=== PATIENT | female | born 1995 | race African-American/Black ===

== ENCOUNTER 2016-09-08 12:58 | Inpatient (IN) | payer OTHER ==
[2016-09-08] VITALS (7 sets, daily range): BP systolic 111–119; BP diastolic 72–81; PULSE 58–71; TEMP 36.5–36.7; O2SAT 95–100; Ht 170.2 cm; Wt 67.2 kg
[~2016-09-08] VITALS: Ht 170.2 cm; Wt 67.2 kg
[2016-09-08] MEDS ORDERED: SODIUM CHLORIDE 0.9% 1000ML 1,000 ML IV STA (13:06)
[2016-09-08] MEDS ORDERED: CEFAZOLIN SOD 1000MG/55 ML D5W IV STA (13:06)
[2016-09-08] MEDS ORDERED: HYDROmorphone INJ 1 MG/ML SYR IV STA (13:24)
--- NOTE | 2016-09-08 13:39 | DIAGNOSTIC IMAGING REPORT ---
RIGHT TIBIA/FIBULA 2 VIEWS ROUTINE CLINICAL HISTORY: right ankle fracture/open Right trauma. Pain. COMPARISON: None. DISCUSSION: No well-defined acute abnormality specifically tibia or fibula. Probable disruption right ankle. Moderate localized soft tissue edema. IMPRESSION: Disruption right ankle. No acute abnormality specifically of the tibia or fibula. Electronically signed by: Zane Ibarra M.D. 09/08/2016 1:38 PM Dictated Date/Time: 09/08/2016 1:37 PM
--- NOTE | 2016-09-08 13:41 | DIAGNOSTIC IMAGING REPORT ---
RIGHT ANKLE MIN 3 VIEWS ROUTINE CLINICAL HISTORY: right ankle fracture/open Right trauma COMPARISON: None. DISCUSSION: 203 images demonstrate disruption of the ankle mortise. A well-defined fracture is not seen. There is soft tissue with associated air present. Lateral projection appears to share generally anatomic alignment. IMPRESSION: Probable rotational dislocation of the tibia and relation to the talus. Considerable soft tissue edema with subcutaneous air Electronically signed by: Zane Ibarra M.D. 09/08/2016 1:40 PM Dictated Date/Time: 09/08/2016 1:38 PM
[2016-09-08] MEDS ORDERED: HYDROmorphone INJ 1 MG/ML SYR IV PRN (14:00)
--- NOTE | 2016-09-08 14:02 | History and Physical ---
History & Physical Date & Time of Service: Sep 08, 2016 at 13:51 Chief Complaint: Fall /Rt Ankle Open Fx Primary Care Physician: [facility] History of Present Illness Source: patient Patient is a 21 year old female, with no medical problems. 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 She was at track practice this afternoon and was doing the triple jump. She states that, while jumping, she landed on her foot wrong and her foot twisted in. She had immediate pain and an open injury to her right ankle. She was unable to walk after the injury. She was brought directly to the ED for evaluation. X-rays were taken, she was found to have a probable ankle dislocation, no fractures were identified. She had an open injury over her distal fibula. She denies other injuries. States that she has pain with movement. She has never had any previous injuries to her right ankle. 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 Allergies Coded Allergies: No Known Allergies (Unverified , 09/08/16) Home Medications No Active Prescriptions or Reported Meds Review of Systems Constitutional: No fever, No chills, No sweats, No weight loss Eyes: No eye pain, No redness ENT: No hearing loss, No sore throat Respiratory: No cough, No sputum, No wheezing, No shortness of breath Cardiovascular: No chest pain, No edema, No palpitations Abdomen: No nausea, No vomiting, No diarrhea, No constipation Musculoskeletal: + joint pain (right ankle), + problem reported Genitourinary - Female: No dysuria Endocrine: No fatigue Hematologic / Lymphatic: No abnormal bleeding/bruising, No clotting problems Integumentary: No rash, No itch Physical Exam Vital Signs Date Time Temp Pulse Resp B/P (MAP) Pulse Ox O2 Delivery O2 Flow Rate FiO2 09/08/16 13:07 37.5 76 18 138/73 98 Room Air General Appearance: WD/WN, no apparent distress Head: normocephalic, atraumatic Eyes: normal inspection, PERRL, EOMI, sclerae normal ENT: normal ENT inspection, hearing grossly normal, pharynx normal Neck: supple, trachea midline Respiratory/Chest: chest non-tender, lungs clear, normal breath sounds, no accessory muscle use Cardiovascular: regular rate, rhythm, no edema, no murmur, normal peripheral pulses Abdomen/GI: normal bowel sounds, non tender, soft Extremities/Musculoskelatal: + pertinent finding (right ankle edema, open wound right ankle, distal pulses 1+; limited ROM right ankle due to pain/open wound. Fatty tissue visualized in wound. Wound is approximately 3 cm. Nontender right calf, nontender right knee, no knee effusion. Mild tenderness with palpation medial right ankle.) Neurologic/Psych: alert, normal mood/affect, oriented x 3 Skin: normal color, warm/dry, no rash Diagnostics Diagnostic Radiology RIGHT ANKLE MIN 3 VIEWS ROUTINE CLINICAL HISTORY: right ankle fracture/open Right trauma COMPARISON: None. DISCUSSION: 203 images demonstrate disruption of the ankle mortise. A well-defined fracture is not seen. There is soft tissue with associated air present. Lateral projection appears to share generally anatomic alignment. IMPRESSION: Probable rotational dislocation of the tibia and relation to the talus. Considerable soft tissue edema with subcutaneous air RIGHT TIBIA/FIBULA 2 VIEWS ROUTINE CLINICAL HISTORY: right ankle fracture/open Right trauma. Pain. COMPARISON: None. DISCUSSION: No well-defined acute abnormality specifically tibia or fibula. Probable disruption right ankle. Moderate localized soft tissue edema. IMPRESSION: Disruption right ankle. No acute abnormality specifically of the tibia or fibula. Impression Assessment and Plan Assessment: Open dislocation of right ankle. Plan: Recommend for Irrigation, debridement, splint, exploration right ankle today. She may or may not need internal fixation. RIsks/complications discussed, and include but are not limited to infection, bleeding, pain, scarring, nerve and blood vessel damage, wound problems, weakness, stiffness, arthritis, blood clots, embolisms, heart attack, stroke or . Informed consent obtained. We will take her to the OR today. She needs to be NPO. She will be admitted post operatively for IV antibiotics. She may require further surgery for wound management. She understands and agrees, all questions answered.
--- NOTE | 2016-09-08 14:15 | DIAGNOSTIC IMAGING REPORT ---
RIGHT ANKLE 2 VIEWS CLINICAL HISTORY: pain Right dislocation COMPARISON: None. DISCUSSION: Anatomic alignment status post closed reduction. The study is restricted AP projections. IMPRESSION: Anatomic alignment on the AP projection post closed reduction Electronically signed by: Zane Ibarra M.D. 09/08/2016 2:13 PM Dictated Date/Time: 09/08/2016 2:12 PM
[2016-09-08] MEDS ORDERED: PROPOFOL IV EMULSION 10 MG/ML 20 ML VIAL IV ONE (14:32)
[2016-09-08] MEDS ORDERED: LIDOCAINE HCL 2% 2 ML VIAL (20MG/ML) ONE (14:32)
[2016-09-08] MEDS ORDERED: MIDAZOLAM HCL 1 MG/ML 2ML VIAL ONE (14:32)
[2016-09-08] MEDS ORDERED: ONDANSETRON INJ 2 MG/ML 2 ML VIAL ONE (14:32)
[2016-09-08] MEDS ORDERED: DEXAMETHASONE SOD INJ 4 MG/ML VIAL ONE (14:32)
[2016-09-08] MEDS ORDERED: FENTANYL CITRATE INJ 50 MCG/1 ML 2 ML VIAL ONE (14:33)
[2016-09-08] MEDS ORDERED: POVIDONE-IODINE OP SOLN 30 ML BTL ONE ×2 (15:00→15:50)
[2016-09-08] MEDS ORDERED: LIDOCAINE/EPINEPHRINE 1% 20 ML VIAL ONE (15:00)
[2016-09-08] MEDS ORDERED: BUPIVACAINE 0.5 % 5 MG/1 ML MPF 30ML VIAL ONE (15:03)
--- NOTE | 2016-09-08 15:15 | ORTHOPEDIC CONSULTATION ---
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 She landed her foot inverted and she sustained an open injury to her right ankle. This happened about 30 minutes ago. She last ate breakfast, had some water at practice this afternoon. She has not had a prior history of ankle injury. She complains of pain only in the right ankle area. PAST MEDICAL HISTORY: Negative. PAST SURGICAL HISTORY: Negative. MEDICATIONS: None. ALLERGIES: Seasonal, none to medications. SOCIAL HISTORY: She is 21 years old, goes to [employer]. 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 PHYSICAL EXAMINATION: Further details can be gathered from Sena Navarro's history and physical. In terms of the right ankle, her Achilles and tibialis anterior appear to be intact. She can flex and extend her toes. Inversion of the ankle is painful and might be associated with subluxation of the tibialis posterior tendon. She holds her leg plantarflexed and inverted. She can dorsiflex short of neutral, plantar flex slightly. She has normal sensation throughout the foot. She has 1+ posterior tibial and dorsalis pedis pulses. The foot and hindfoot are nontender. She has tenderness of the medial and lateral malleoli. Swelling is minimal. She has no tenderness of her leg or knee. There is an open wound on the lateral side of the ankle which is probably 3-4 cm and is somewhat irregular, possibly oblique. The fibula is buttonholed out through this with skin underneath the medial portion of the distal fibula. There is some sand present. There was an ant crawling on her leg. The sand was cleaned away, insect which was nowhere near the wound on her lower leg area was removed. DIAGNOSTIC IMAGING: Radiographs show that there is abnormal alignment of the talus within the distal tibia. There appears to be air within the subcutaneous tissues, possibly within the joint. There is foreign material noted around the skin and possibly subcutaneous tissues. I do not see any obvious fracture. The oblique view suggests that there could be a nondisplaced posterior malleolar fracture. There does not appear to be a syndesmotic disruption or any evidence of medial or lateral malleoli fracture. IMPRESSION: Severe right ankle sprain with open wound and probable open ankle joint, possible injury to the medial retinaculum. 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 She is educated about what is going on. I think she sustained a severe inversion injury which resulted in tearing of all the ligaments around the distal fibula, tear in the skin and buttonholing of the fibula through the skin. She likely has an open ankle joint in addition to significant ligament damage on the lateral side of her ankle. There are other injuries which may still be present and unrecognized. I recommend that we operate on her ankle initially to irrigate, explore and debrided. I do not think that we will be doing any repairing at this point. I would then suggest possibly returning to the operating room for further repair of the ligaments as indicated. Given that she has sand in and around the wound, I think that this is a potentially contaminated wound. I am not certain what kind of debris may be within the ankle joint. There may be damage to the tibialis posterior tendon sheath causing the tendon to subluxate. If that is the case a repair may be considered there as this is away from the open wound area. The risks of infection, bleeding, pain, scarring, nerve and blood vessel damage, blood clots, embolism, heart attack, stroke and . She may need further surgery, stiffness, ankle arthritis and ankle looseness could be a risk. She does not have any issues with bleeding, blood clots or infections. We will plan on proceeding to the operating room. Her tetanus is up to date. She has received 2 grams of Ancef. She will be placed in a Betadine dressing with a posterior splint and U-stirrup and will go promptly to the OR for exploration.
[2016-09-08] MEDS ORDERED: MoRPHine SULFATE 10 MG/ML CARP/VIAL IV PRN (15:30)
[2016-09-08] MEDS ORDERED: ONDANSETRON INJ 2 MG/ML 2 ML VIAL IV PRN (15:30)
[2016-09-08] MEDS ORDERED: NALOXONE HCL 0.4 MG/1 ML VIAL/CARP IV PRN (15:30)
[2016-09-08] MEDS ORDERED: ATROPINE SULFATE 0.1 MG/ML 5ML SYR IV PRN (15:30)
[2016-09-08] MEDS ORDERED: PHENYLEPHRINE 100MCG/ML 5ML SYR IV PRN (15:30)
[2016-09-08] MEDS ORDERED: FLUMAZENIL 0.1 MG/1 ML 10 ML VIAL IV PRN (15:30)
[2016-09-08] MEDS ORDERED: LABETALOL HCL IV 5 MG/ML 20ML IV PRN (15:30)
[2016-09-08] MEDS ORDERED: EpHEDrine SULFATE INJ 50 MG/ML AMP IV PRN (15:30)
[2016-09-08] MEDS ORDERED: MEPERIDINE HCL 25 MG/ML CARP IV PRN (15:30)
[2016-09-08] MEDS ORDERED: ROCURONIUM BROMIDE 10 MG/ML 5 ML VIAL ONE (15:34)
[2016-09-08] MEDS ORDERED: SUCCINYLCHOLINE CHLORIDE 20 MG/ML 10 ML VIAL IV ONE (15:34)
[2016-09-08] MEDS ORDERED: ACETAMINOPHEN 325 MG TAB PO PRN (16:45)
--- NOTE | 2016-09-08 16:47 | [facility] Post Operative Brief Note ---
Immediate Operative Summary Operative Date Sep 08, 2016. Pre-Operative Diagnosis complete lateral ligament disruption with open ankle joint Post-Operative Diagnosis complete lateral ligament disruption with open ankle joint Procedure(s) Performed Irrigate, Explore, Repair of Right Ankle Wound Surgeon Dr. Navdeep Perez Assistant Professor Of Theater Surgeon(s) Sena Navarro PA-C Estimated Blood Loss 10ml Findings complete lateral ligament disruption with open ankle joint Specimens none per surgeon Dr. Navdeep Perez Drains 1 Anesthesia LMA Complication(s) None Disposition Recovery Room / PACU
--- NOTE | 2016-09-08 16:48 | [facility] Operative Report ---
Operative Report Operative Date Sep 08, 2016. Pre-Operative Diagnosis complete lateral ligament disruption with open ankle joint Post-Operative Diagnosis Same as pre-op Procedure(s) Performed Irrigation, debridement, exploration right open ankle wound Surgeon Dr. Navdeep Perez Plans Examiner Surgeon(s) Sena Navarro PA-C Estimated Blood Loss 10ml Findings right open ankle wound Specimens none per surgeon Dr. 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 She injured her right ankle today while doing the triple jump. She landed on her foot while inverted and sustained right open ankle injury. She had immediate pain, was taken to ED for evaluation. Surgical intervention was recommended for irrigation, debridement and exploration of her right ankle wound. She agreed, risks/complications of surgery discussed, informed consent obtained. Description of Procedure Patient was taken to the operating room, given IV Ancef, which was started in the ED. Time out performed, prepped and draped in routine sterile fashion. She was awakened and taken to the recovery room in stable condition. I was present the entire case, please see Dr. Perez's operative report for further detail. I attest to the content of the Intraoperative Record and any orders documented therein. Any exceptions are noted below.
[2016-09-08] MEDS: HYDROmorphone INJ 1 MG/ML SYR IV PRN ×4 (17:05→17:20)
--- NOTE | 2016-09-08 17:44 | Anesthesiology Progress Note ---
Anesthesia Post Op Note Date & Time Sep 08, 2016 at 17:43 Vital Signs Pain Intensity: 3 Vital Signs Past 12 Hours Date Time Temp Pulse Resp B/P (MAP) Pulse Ox O2 Delivery O2 Flow Rate FiO2 09/08/16 17:30 36.7 64 16 130/74 100 Nasal Cannula 2 09/08/16 17:20 64 16 118/75 100 Nasal Cannula 2 09/08/16 17:10 81 16 128/79 100 Room Air 09/08/16 17:00 75 16 126/72 100 Mask 10 09/08/16 16:50 90 16 128/73 100 Mask 10 09/08/16 16:44 36.6 85 16 127/79 99 Mask 10 09/08/16 14:15 95 Room Air 09/08/16 14:10 83 16 129/74 95 Room Air 09/08/16 13:07 37.5 76 18 138/73 98 Room Air Notes Mental Status: alert / awake / arousable, participated in evaluation Pt Amnestic to Procedure: Yes Nausea / Vomiting: adequately controlled Pain: adequately controlled Airway Patency, RR, SpO2: stable & adequate BP & HR: stable & adequate Hydration State: stable & adequate Anesthetic Complications: no major complications apparent
--- NOTE | 2016-09-08 18:00 | OPERATIVE REPORT ---
DATE OF OPERATION: 09/08/2016 PREOPERATIVE DIAGNOSIS: Open right ankle wound. POSTOPERATIVE DIAGNOSES: Complete disruption of the lateral ankle ligamentous complex of the right ankle with open ankle joint and disruption of the anterior and posterior joint capsule, and probable traumatic disruption of the medial flexor retinaculum of the right ankle as well. PROCEDURES: Examination under anesthesia, exploration, irrigation and debridement of the right ankle. SURGEON: Dr. Navdeep Perez. LUMBER RACKER: Sena Navarro. No resident or fellow available. ANESTHESIA: Laryngeal mask. INDICATIONS FOR THE PROCEDURE: The patient is a 21-year-old female who sustained the aforementioned injury after she was landing a triple jump at [facility]. 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 When evaluated in the Emergency Room, radiographs showed that she had no visible fracture. She did have some tenderness and some irregularity medially, which I believe later determined was due to disruption of the medial retinaculum. She also had the distal 3-4 cm of her fibula protruding from a transverse wound at the distal extent of the right lateral ankle. I have recommended that she have an irrigation and debridement, exploration done and she agreed to proceed. I believe that she likely has an open ankle joint with possible contamination. PROCEDURE IN DETAIL: Informed consent was obtained. The patient identified as Janet Cabrera. She identified the operative site as the right ankle. I marked it with my initials. A preop surgical timeout was performed. A preop dose of IV antibiotics was given. She was positioned supine on the OR table with tourniquet on the right leg. The leg was precleansed by scrubbing with chlorhexidine and irrigating with sterile saline to wash gross debris off her leg, mostly which was sand. The open wound was scrubbed in a likewise fashion. I inverted the ankle to see if there is any gross contamination between the medial fibula and the skin, which there was not. Prior to this, a surgical timeout was performed and she received a preop dose of IV antibiotics. The examination during surgery revealed that she had a grossly positive ankle drawer. When her ankle was reduced and in the neutral position, she did not have significant [id number]-[id number] laxity. She had significant laxity to inversion stress. At the conclusion of the operation, approximately 15 mL of 1% lidocaine with epinephrine and 0.5% Marcaine plain were injected into the skin and subcutaneous tissues only. DVT prophylaxis will be done with early patient mobility. The leg was prescrubbed as mentioned and then prepped with Betadine and draped in usual sterile fashion. The limb was exsanguinated with gravity and tourniquet inflated to 225 mmHg. It was let down at the conclusion of the operation after 50 minutes of inflation. There was no significant bleeding noted before or after surgery. I initially reduced the skin from underneath the fibula back to its normal location to the lateral side of the fibula. Essentially, the tip of the fibula had buttonholed through the skin. This laceration turned out to be L shaped with the apex of the L posterior and distal. The transverse component was distal and this was about 3 cm from the tip of the fibula. The longitudinal limb extended proximally along the posterior aspect of the fibula. I elected to go ahead and divide the distal flap in half rather than make a large flap with undermining. This will also allow access to the front and back of the fibula without significant undermining. I made the incision about 3 cm in length down to the level of the fibular periosteum. The calcaneofibular and anterior talofibular ligaments were completely avulsed off of the talus and were attached to the fibula. They were extracted from the joint. The joint was readily opened as the anterior capsule was completely disrupted. A colby of cartilage mm thick and 0.9 x 0.9 x 0.9 cm in size, very fragmented irregular was noted. I could not determine where this came from as I could see the most of the talus/tibial plafond except for medially. I could not see the medial aspect of the distal fibula. The talus and tibia that I visualized did not have any cartilage defects. There fortunately was not gross contamination present. I did not note any sand or dirt within the ankle joint proper. This was irrigated with 3 liters of saline pulse lavage. I irrigated with 1 liter of Betadine lavage solution followed by another 3 liters of sterile saline. Irrigation was performed in the front of the ankle joint. With the ankle in mid position and anterior drawer, the posterior capsule could be seen and visualized to be also completely torn. Irrigation was performed of the back of the ankle joint as well. With the ankle slightly everted and a neutral position without any anterior pressure on the calcaneus, the ankle was reduced. I also noted that I could subluxate the tibialis posterior tendon up over the medial malleolus. She likely had a flexure retinacular tear as well. A drain was inserted that exiting out laterally. The surgical incision was closed with horizontal mattress stitches. The traumatic laceration was closed using a combination of [id number] stitches and simple stitches, reapproximating the skin edges, covering the bone completely and leaving gaps in between for drainage. Xeroform, 4 x 4's, ABD, and cast padding were applied. A posterior splint with U-stirrup was applied with the ankle in neutral position, slight eversion. When applying the splint, no anterior pressure was applied to the heel and no anterior direct force was applied to the foot so as to avoid any subsequent subluxation. She was awakened from anesthesia without difficulty and taken to recovery room in stable condition. There were no specimens or complications. Counts were correct at the end of case. Blood loss was approximately 10 mL. At the conclusion of the operation, I spoke to patient's friend and informed them of my findings. Postoperative instructions were given. Postoperative plan will be drainage for 24-48 hours. After the drain has pulled, we will obtain an MRI for further evaluation. She will receive a course of postop intravenous antibiotics, first generation cephalosporin for approximately 48 hours. She will have nonweightbearing on the leg using crutches. Consideration will be made to referral to the foot and ankle specialist at [place] given the significant nature of her ankle injury as well as her lead level of athletic participation. The patient likely will require ankle ligament reconstruction or repair as well as medial retinacular repair. At this time, given the open nature of her ankle injury, I think it is prudent to ensure that the soft tissue envelope is competent and that no infection develops prior to any type of reconstructive procedure for now. I attest to the content of the Intraoperative Record and any orders documented therein. Any exceptions are noted below. ERICK
--- NOTE | 2016-09-08 19:28 | EMERGENCY ROOM VISIT NOTE ---
History Report prepared by Tomas: Bailey Yanez Under the Supervision of: Dr. Garrett Vaughn M.D. First contact with patient: 13:01 Stated Complaint: FALL /RT ANKLE OPEN FX History of Present Illness The patient is a 21 year old female who presents to the Emergency Room with complaints of an episode of a fall just prior to arrival. The patient reports that she was doing the triple jump into the sand pit and twisted her ankle. She states that she rated her pain originally as a 12/10 in severity and now currently rates it as a 7/10 in severity. The patient reports that it is very uncomfortable. She states that she has rolled her ankle in the past, but nothing like this before. She notes that she last ate grapes and crackers three hours ago and that she believes her tetanus is up to date. She notes that she does not take any control. Source of History: patient Onset: prior to arrival Position: other (global) Symptom Intensity: 7/10 Quality: other (uncomfortable) Timing: other (episode) Note: The patient complains of ankle pain. Review of Systems See HPI for pertinent positives & negatives. A total of 10 systems reviewed and were otherwise negative. Past Medical & Surgical Medical Problems: (1) No Known Active Medical Problems (2) Open wound of ankle Family History No pertinent family history Social History Smoking Status: Never Smoker Drug Use: none Marital Status: single Housing Status: lives with roommate Occupation Status: [employer] student Current/Historical Medications No Active Prescriptions or Reported Meds Allergies Coded Allergies: No Known Allergies (Unverified , 09/08/16) Physical Exam Vital Signs Date Time Temp Pulse Resp B/P (MAP) Pulse Ox O2 Delivery O2 Flow Rate FiO2 09/08/16 14:15 95 Room Air 09/08/16 14:10 83 16 129/74 95 Room Air 09/08/16 13:07 37.5 76 18 138/73 98 Room Air Physical Exam GENERAL: Patient is uncomfortable appearing and in moderate distress. HEENT: No acute trauma, normocephalic atraumatic, mucous membranes moist, no nasal congestion, no scleral icterus. NECK: No stridor, no adenopathy, no meningismus, trachea is midline. LUNGS: No dyspnea. Clear to auscultation and equal bilaterally. No wheeze, no rhonchi. HEART: Regular rate and rhythm. No murmurs, rubs, gallops appreciated. ABDOMEN: Soft, nontender, bowel sounds positive, no masses appreciated, no peritonitis. BACK: No midline tenderness, no CVA tenderness EXTREMITIES: Normal motion all extremities, no cyanosis, no edema. Mild medial angulation of right ankle with open fracture of lateral malleolus and bone exposed with 3 cm laceration. Pulses, sensation, and movement intact, ankle is unstable by examination, no tenderness to palpation over fibular head. NEUROLOGIC: Alert and oriented, no acute motor or sensory deficits, no focal weakness, cranial nerves grossly intact. SKIN: No rash, no jaundice, no diaphoresis. Medical Decision & Procedures ER Provider Diagnostic Interpretation: Radiology results and stated below per my review and radiologist interpretation: RIGHT TIBIA/FIBULA 2 VIEWS ROUTINE CLINICAL HISTORY: right ankle fracture/open Right trauma. Pain. COMPARISON: None. DISCUSSION: No well-defined acute abnormality specifically tibia or fibula. Probable disruption right ankle. Moderate localized soft tissue edema. IMPRESSION: Disruption right ankle. No acute abnormality specifically of the tibia or fibula. Electronically signed by: Zane Ibarra M.D. 09/08/2016 1:38 PM Dictated Date/Time: 09/08/2016 1:37 PM RIGHT ANKLE MIN 3 VIEWS ROUTINE CLINICAL HISTORY: right ankle fracture/open Right trauma COMPARISON: None. DISCUSSION: 203 images demonstrate disruption of the ankle mortise. A well-defined fracture is not seen. There is soft tissue with associated air present. Lateral projection appears to share generally anatomic alignment. IMPRESSION: Probable rotational dislocation of the tibia and relation to the talus. Considerable soft tissue edema with subcutaneous air Electronically signed by: Zane Ibarra M.D. 09/08/2016 1:40 PM Dictated Date/Time: 09/08/2016 1:38 PM Laboratory Results Test 09/08/16 14:48 Medications Administered Medications (Trade) Dose Ordered Sig/Connor Route Start Time Stop Time Status Last Admin Dose Admin Sodium Chloride 1,000 ml @ 125 mls/hr Q8H STAT IV 09/08/16 13:06 09/08/16 18:44 DC 09/08/16 13:27 125 MLS/HR Cefazolin Sodium (Ancef 1000mg/55 ml D5W) 2,000 mg NOW STAT IV 09/08/16 13:06 09/08/16 13:08 DC 09/08/16 13:28 2,000 MG Hydromorphone HCl (Dilaudid Inj) 1 mg NOW STAT IV 09/08/16 13:24 09/08/16 13:25 DC 09/08/16 13:37 1 MG Povidone Iodine (Betadine Ophthalmic Prep Solution) 30 ml STK-MED ONCE .ROUTE 09/08/16 15:00 09/08/16 15:01 DC 09/08/16 15:00 30 ML Lidocaine/ Epinephrine (Xylocaine/Epine 1% Inj) 20 ml STK-MED ONCE .ROUTE 09/08/16 15:00 09/08/16 15:01 DC 09/08/16 16:01 20 ML Bupivacaine HCl (Marcaine 0.5% MPF Inj) 30 ml STK-MED ONCE .ROUTE 09/08/16 15:03 09/08/16 15:04 DC 09/08/16 16:01 30 ML Hydromorphone HCl (Dilaudid Inj) 0.5 mg Q5M PRN IV 09/08/16 15:30 09/08/16 21:00 09/08/16 17:20 0.5 MG Povidone Iodine (Betadine Ophthalmic Prep Solution) 60 ml STK-MED ONCE .ROUTE 09/08/16 15:50 09/08/16 15:51 DC 09/08/16 16:01 60 ML ED Course 1302: The patient was evaluated in room A9. A complete history and physical exam was performed. 1306: Ordered Cefazolin Sodium 2000 mg IV, NSS 1000 ml @ 125 mls/hr IV. 1311: Discussed the patient's case with Dr. Perez. He will come evaluate the patient. 1323: I reevaluated the patient and she is currently in pain. She has requested more pain medication. 1324: Ordered Dilaudid Inj 1 mg IV. 1344: Dr. Perez has evaluated the ankle and feels that she needs to go to he OR. He asked that we place and Orthoglass splint. 1347: I reevaluated the patient and she notes that the pain is improving after the Dilaudid. 1400: Ordered Dilaudid Inj 1 mg PRN IV pain 1437: The patient will be transferred to the OR as soon as the OR is ready. Medical Decision Medication Reconciliation: I attest that I have personally reviewed the patient 's current medication list. Blood Pressure Screening: Patient was found to have a slightly elevated blood pressure due to circumstances. I do not believe that the patient requires hypertension monitoring. 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 She has clear open injury with fibula extending ~3 cm out of lateral aspect right ankle. Unstable ankle by exam. Grossly contaminated with sand. Tetanus UTD per patient. Given empiric Ancef with plan OR. Imaging remarkably without obvious fracture. [employer] orthopedics down to evaluate patient and then took her to OR for definitive treatment. Stable and pain controlled with IV dilaudid in ED. No other injuries and denies other complaints. Consults Time Called: 1307 Consulting Physician: Dr. Perez Returned Call: 1311 Discussed the patient's case with Dr. Perez. He will come evaluate the patient. Impression Primary Impression: Open dislocation of ankle Scribe Attestation The scribe's documentation has been prepared under my direction and personally reviewed by me in its entirety. I confirm that the note above accurately reflects all work, treatment, procedures, and medical decision making performed by me. Departure Information Dispostion Being Evaluated By Surgeon Prescriptions No Active Prescriptions or Reported Meds Referrals [facility] (PCP) Problem Qualifiers Primary Impression: Open dislocation of ankle Encounter type: initial encounter Laterality: right Qualified Codes: S93.04XA - Dislocation of right ankle joint, initial encounter; S91.001A - Unspecified open wound, right ankle, initial encounter
[2016-09-08] MEDS: D5W AND 1/2NSS + 20MEQ KCL 1,000 ML IV SCH (19:46)
[2016-09-08] MEDS: KETOROLAC TROMETHAMINE 30 MG/ML VIAL IV. SCH (19:46)
[2016-09-08] MEDS: DOCUSATE SODIUM 100 MG CAP PO SCH (21:00)
[2016-09-08] MEDS: ONDANSETRON INJ 2 MG/ML 2 ML VIAL IV PRN (21:36)
[2016-09-08] MEDS ORDERED: CEFAZOLIN SOD 1000MG/55 ML D5W IV SCH (22:00)
[2016-09-08] MEDS: CEFAZOLIN IV 1,000 MG in DEXTROSE 5% 50ML 50 ML IV SCH (22:19)
[2016-09-08] MEDS: OXYCODONE HCL IR 5 MG TAB (IMMEDIATE RELEASE) PO PRN (23:37)
[2016-09-09] VITALS (7 sets, daily range): BP systolic 98–114; BP diastolic 64–72; PULSE 52–77; TEMP 36.5–37.3; O2SAT 98–100
[2016-09-09] MEDS: MoRPHine SULFATE 2 MG/ML CARP IV PRN ×3 (00:43→06:06)
[2016-09-09] MEDS: KETOROLAC TROMETHAMINE 30 MG/ML VIAL IV. SCH ×3 (01:26→13:31)
[2016-09-09] MEDS: OXYCODONE HCL IR 5 MG TAB (IMMEDIATE RELEASE) PO PRN ×3 (03:53→22:13)
[2016-09-09] MEDS: ONDANSETRON INJ 2 MG/ML 2 ML VIAL IV PRN (06:02)
[2016-09-09] MEDS: CEFAZOLIN IV 1,000 MG in DEXTROSE 5% 50ML 50 ML IV SCH ×3 (06:05→21:38)
[2016-09-09] MEDS: D5W AND 1/2NSS + 20MEQ KCL 1,000 ML IV SCH ×2 (06:05→15:45)
--- NOTE | 2016-09-09 08:51 | Orthopedic Progress Note ---
Orthopedic Progress Note Date of Service Sep 09, 2016. Subjective Post OP Day: 1 Reports: feeling well, nausea / vomiting, pain controlled w PO medications, Denies: chest pain, SOB, light headedness Additional Notes: States no pain with rest, pain with movement, controlled now. She just recently vomited. Objective calves soft nontender, N/V intact, splint C/D/I, dressing C/D/I, A&O x3, toes mobile Hemovac removed today. Date Time Temp Pulse Resp B/P (MAP) Pulse Ox O2 Delivery O2 Flow Rate FiO2 09/09/16 08:05 100 Room Air 09/09/16 07:56 36.5 59 15 104/68 (80) 100 Room Air 09/09/16 04:00 36.6 57 16 110/70 (83) 100 Room Air 09/08/16 23:38 Nasal Cannula 2.0 09/08/16 23:25 36.5 60 14 111/74 (86) 100 Nasal Cannula 2.0 09/08/16 20:55 36.7 64 16 118/74 (89) 100 Nasal Cannula 2.0 09/08/16 19:57 36.5 71 16 119/72 (88) 100 Nasal Cannula 09/08/16 18:57 36.7 58 16 118/81 (93) 100 Nasal Cannula 2.0 09/08/16 18:32 36.6 60 14 116/73 (87) 100 Nasal Cannula 2.0 09/08/16 17:50 100 Nasal Cannula 2.0 09/08/16 17:50 100 Nasal Cannula 2.0 09/08/16 17:30 36.7 64 16 130/74 100 Nasal Cannula 2 09/08/16 17:20 64 16 118/75 100 Nasal Cannula 2 09/08/16 17:10 81 16 128/79 100 Room Air 09/08/16 17:00 75 16 126/72 100 Mask 10 09/08/16 16:50 90 16 128/73 100 Mask 10 09/08/16 16:44 36.6 85 16 127/79 99 Mask 10 09/08/16 14:15 95 Room Air 09/08/16 14:10 83 16 129/74 95 Room Air 09/08/16 13:07 37.5 76 18 138/73 98 Room Air Assessment & Plan Assessment: Open right ankle wound Plan: May be OOB with crutches, NWB RLE Ice/elevate as needed for pain/swelling Will add Reglan for N/V. Will order MRI of right ankle today to further evaluate soft tissue. Keep splint on at all times Continue IV Ancef for open wound into joint Plan for discharge to home possible . Will discuss findings with Dr. Perez. All questions answered. dp 2+ motor toes flex, ext 5/5, sens nml, plan MRI, ABX, discussed with patient Discharge Planning Discharge Planning: home Pain Management: Percocet
[2016-09-09] MEDS ORDERED: OXYC-57 PO (08:54)
--- NOTE | 2016-09-09 08:58 | Discharge Instructions ---
Discharge Instructions Date of Service Sep 09, 2016. Admission Reason for Admission: Open Wound Of Ankle Discharge Discharge Diagnosis / Problem: open right ankle wound Discharge Goals Goal(s): Decrease discomfort, Improve function, Increase independence Activity Recommendations Activity Limitations: per Instructions/Follow-up section Exercise/Sports Limitations: none (no sports) Driving or Machine Use: no driving Weightbearing Status: Left weightbearing (as tolerated), Right non- weightbearing . Instructions / Follow-Up Instructions / Follow-Up DIET: * Resume previous diet. MEDICATIONS: * Please take your prescriptions as instructed at your pre-op appointment and/ or see medication discharge instructions listed above. * If concerns develop, call your physician's office at . * Take stool softener (colace) while on pain medication * Take antibiotic (Keflex) four times/day x 5 days * Take zofran every 6 hours as needed for nausea/vomiting. SPECIAL CARE INSTRUCTIONS: * Ice to right ankle for 20-30 minutes at least 3 times/day * Elevate right ankle above heart to relieve pain/swelling. * Use crutches to assist with ambulation. * DO NOT PUT ANY WEIGHT ON RIGHT LEG * Keep dressing clean, dry, intact. Keep splint on at all times. * Okay to wiggle toes frequently and do full range of motion of right knee and right hip. * Your surgical extremity may be discolored due to prepping agents used on the skin. A bluish-green tint is a normal variant and should not cause alarm. Call your doctor at [phone] if: * Temperature above 101 degrees * Pain not relieved by pain medicine ordered * There is increased drainage or redness from any incision * You have any unanswered questions, problems or concerns. FOLLOW UP VISIT: * If not already scheduled, please call the office at to schedule a follow-up appointment. Please call Dr. Perez or Dr. Amezcua with any questions or concerns. * We will notify you of your appointment with a foot and ankle specialist in [facility] Hospital Diet Patient's current hospital diet: Regular Diet Discharge Diet Recommended Diet: Regular Diet Procedures Procedures Performed: Irrigate, Explore, Repair of Right Ankle Wound Pending Studies Studies pending at discharge: no Medical Emergencies . Who to Call and When: Medical Emergencies: If at any time you feel your situation is an emergency, please call 911 immediately. . Non-Emergent Contact Non-Emergency issues call your: Surgeon Call Non-Emergent contact if: temperature is above 101, your pain is not controlled, your pain is concerning you, wound has increased drainage, wound has increased redness, you have any medication questions . "Provider Documentation" section prepared by Sena Navarro. . VTE Core Measure Inpt VTE Proph given/why not?: Treatment not indicated [place] Drug Monitoring Program Search Results: patient reviewed within database, no issues identified
[2016-09-09] MEDS: MULTIVITAMIN TAB PO SCH (09:00)
[2016-09-09] MEDS ORDERED: METOCLOPRAMIDE HCL INJ 5 MG/ML 2 ML VIAL IV PRN (09:00)
[2016-09-09] MEDS: DOCUSATE SODIUM 100 MG CAP PO SCH ×2 (09:00→21:05)
--- NOTE | 2016-09-09 15:08 | DIAGNOSTIC IMAGING REPORT ---
RIGHT ANKLE MRI HISTORY: open right ankle wound into joint Right TECHNIQUE: Multiplanar multisequence MRI of the right ankle was performed without the use of intravenous contrast COMPARISON STUDY: Right ankle 09/08/2016. FINDINGS: Extensive subcutaneous edema seen throughout the right ankle. There are few small foci of subcutaneous gas along the lateral aspect of the ankle. There is also deep soft tissue edema surrounding the ankle. Mild marrow edema within the medial and lateral aspect of the distal tibia. However, no fracture or dislocation identified. These may represent small bone contusions. As also mild edema at the posterior talar dome. Mild marrow edema along the medial aspect of the talus. Interosseous ligament is likely intact. The Achilles tendon, flexor tendons, extensor tendons, and peroneal tendons are normal in course, caliber, and signal intensity. Full-thickness tear within the anterior talofibular and calcaneofibular ligaments. Mild edema within the posterior talofibular ligaments consistent with partial tear. There is also full-thickness tear at the deltoid ligament. IMPRESSION: 1. No acute fracture or dislocation within the right ankle. 2. Extensive soft tissue edema throughout the ankle with a small foci of subcutaneous gas along the lateral side of the ankle. 3. Small patchy areas of marrow edema within the distal tibia and talus suggestive of bone contusions. 4. Tears of the medial and lateral stabilizing ligaments as described above. Electronically signed by: Arron Castro M.D. 09/09/2016 3:07 PM Dictated Date/Time: 09/09/2016 2:56 PM
[2016-09-10] MEDS: D5W AND 1/2NSS + 20MEQ KCL 1,000 ML IV SCH ×2 (01:33→11:21)
[2016-09-10] MEDS: CEFAZOLIN IV 1,000 MG in DEXTROSE 5% 50ML 50 ML IV SCH ×2 (05:40→14:19)
[2016-09-10 06:05] VITALS: BP 128/76; PULSE 64; TEMP 37.8; O2SAT 100
[2016-09-10 06:07] VITALS: TEMP 37.5
[2016-09-10 07:45] VITALS: BP 110/62; PULSE 80; TEMP 37.4; O2SAT 100
[2016-09-10] MEDS: OXYCODONE HCL IR 5 MG TAB (IMMEDIATE RELEASE) PO PRN ×2 (08:27→14:08)
[2016-09-10] MEDS: DOCUSATE SODIUM 100 MG CAP PO SCH (08:30)
[2016-09-10] MEDS: MULTIVITAMIN TAB PO SCH (08:30)
[2016-09-10 08:46] VITALS: O2SAT 100
--- NOTE | 2016-09-10 08:53 | Progress Note ---
Orthopedic SOAP Note Subjective Date of Service: Sep 10, 2016. Post OP Day: 1 Reports: feeling well, pain controlled w PO medications, Denies: complaints, chest pain, SOB, nausea / vomiting, light headedness, calf pain, using [employer] Problem List Medical Problems: (1) Left otitis media Status: Acute (2) Open dislocation of ankle Status: Acute Objective calves soft nontender, N/V intact (good sensation great toe and toes 2-5, EHL intact, good strength with great toe flexion), capillary refill less than 2 sec. , dressing C/D/I, A&O x3, toes mobile Date Time Temp Pulse Resp B/P (MAP) Pulse Ox O2 Delivery O2 Flow Rate FiO2 09/10/16 07:45 37.4 80 15 110/62 (78) 100 Room Air 09/10/16 06:07 37.5 09/10/16 06:05 37.8 64 16 128/76 (93) 100 Room Air 09/09/16 23:45 Room Air 09/09/16 23:00 37.1 77 14 114/67 (83) 98 Room Air 09/09/16 15:35 Room Air 09/09/16 15:02 37.3 76 16 110/67 (81) 100 Room Air 09/09/16 12:07 36.8 52 12 98/64 (75) 99 Room Air 09/09/16 11:07 59 100 09/09/16 08:44 Room Air Assessment I&D and exploration of open right ankle wound Plan May be OOB with crutches, NWB RLE Ice/elevate as needed for pain/swelling Will add Reglan for N/V. MRI of right ankle yesterday to further evaluate soft tissue. Keep splint on at all times Continue IV Ancef for open wound into joint Plan for discharge to home possible . Will discuss findings with Dr. Perez. All questions answered. dp 2+ motor toes flex, ext 5/5, sens nml, plan MRI, ABX, discussed with patient
[2016-09-10] MEDS ORDERED: CEPH500C2 PO (14:34)
[2016-09-10] MEDS ORDERED: CLC100 PO (14:34)
[2016-09-10] MEDS ORDERED: ONDA4TAB10 SL (14:34)
[2016-09-10 14:56] VITALS: BP 110/62; PULSE 80; TEMP 37.4; O2SAT 100
--- NOTE | 2016-09-10 15:06 | PROGRESS NOTE ---
DATE: 09/10/2016 SUBJECTIVE: The patient is resting comfortably in bed. No problems were noted. Numerous questions are answered. She is afebrile. Her vital signs are stable. She has altered sensation, some numbness on the dorsum of the foot. The plantar aspect of the foot first webspace and medial side are okay, lateral border is more numb. Dorsalis pedis 1+ swelling, minimal. Her wound is inspected. There is no bleeding, swelling is minimal. There is no necrosis. No active drainage. She is redressed and splinted in neutral with an ankle stirrup. MRI is reviewed demonstrating significant soft tissue edema and soft tissue injury, complete lateral ligament injury and a medial deltoid injury as well. No fracture noted. Report reviewed. IMPRESSION: Severe right ankle sprain with injury to the deltoid calcaneofibular anterior and posterior talofibular ligaments and open joint, status post irrigation and debridement. PLAN: Findings are discussed. She will finish up her antibiotics and will be discharged home. Keep clean and dry. Keep the splint on, does not bear weight. Elevate, ice. Pain medication, antiinflammatory, medicine for nausea and a stool softener. We will place her on Keflex for 5 days. Followup will be arranged at [place] with foot and ankle service. This appointment is pending. If there are any problems with swelling, numbness, fever, severe pain, nausea, vomiting, dizziness, etc, please contact the office or go to the Emergency Room. We discussed there may be a need for further surgical intervention to treat the significant ligament injury that she has experienced.
[2016-09-10 15:21] VITALS: BP 111/71; PULSE 84; TEMP 37.1; O2SAT 98
--- NOTE | 2016-09-10 15:32 | Discharge Summary ---
Discharge Summary Date of Service Sep 10, 2016. Discharge Summary Admission Date: Sep 09, 2016 at 08:53 Discharge Date: Sep 10, 2016 Discharge Disposition: Home Principal Diagnosis: Right open ankle wound Procedures: Irrigation, debridement, exploration of right open ankle wound Pending Studies/Follow-Up: Follow up with Dr. Perez as instructed, our office will notify you with [place] Medication Reconciliation New Medications: Cephalexin Monohydrate (Keflex) 500 Mg Cap 500 MG PO QID, #20 CAP Ondasetron Odt (Zofran Odt) 4 Mg Tab 4 MG SL Q6H for Nausea, #20 TAB Oxycodone/Acetaminophen 5MG/325MG (Percocet 5MG/325MG) Tab 1-2 TABLETS PO Q4H PRN for Pain, #30 TAB Docusate Sodium (Docusate Sodium) 100 Mg Cap 100 MG PO BID for 30 Days, #60 CAP Admission Information HPI (per Admitting provider): Patient is a 21 year old female, with no medical problems. 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 She was at track practice this afternoon and was doing the triple jump. She states that, while jumping, she landed on her foot wrong and her foot twisted in. She had immediate pain and an open injury to her right ankle. She was unable to walk after the injury. She was brought directly to the ED for evaluation. X-rays were taken, she was found to have a probable ankle dislocation, no fractures were identified. She had an open injury over her distal fibula. She denies other injuries. States that she has pain with movement. She has never had any previous injuries to her right ankle. Physical Exam (per Admitting): General Appearance: WD/WN, no apparent distress Head: normocephalic, atraumatic Eyes: normal inspection, PERRL, EOMI, sclerae normal ENT: normal ENT inspection, hearing grossly normal, pharynx normal Neck: supple, trachea midline Respiratory/Chest: chest non-tender, lungs clear, normal breath sounds, no accessory muscle use Cardiovascular: regular rate, rhythm, no edema, no murmur, normal peripheral pulses Abdomen/GI: normal bowel sounds, non tender, soft Extremities/Musculoskelatal: + pertinent finding (right ankle edema, open wound right ankle, distal pulses 1+; limited ROM right ankle due to pain/open wound. Fatty tissue visualized in wound. Wound is approximately 3 cm. Nontender right calf, nontender right knee, no knee effusion. 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 She landed on her foot in inversion and had immediate pain. She sustained an open right ankle wound. She was seen and evaluated by Dr. Perez and surgical intervention was recommended for an irrigation, debridement, exploration of her right ankle wound. X-rays were taken in the ED and no fractures were identified. She was started on IV Ancef for infection prevention. On September 08, 2016 she underwent and urgent irrigation, debridement, exploration of her right ankle wound with Dr. Perez. This was done with general anesthesia. She tolerated the procedure well without any intra- operative complications. Post operatively she was allowed to be out of bed as tolerated, Non weight bearing right lower extremity with the assistance of crutches. She was instructed to ice and elevate for pain/swelling. She was given IV morphine and oral percocet for pain control. She did develop post operative nausea and vomiting and was given Zofran and Reglan to assist with those symptoms. Her IV Ancef 1 gm was continued q8hrs due to having an open wound to the ankle joint with exposed bone. She had a hemovac placed in her ankle which was removed on POD 1 without difficulty. An MRI was ordered and completed on September 09, 2016 and showed significant lateral ligamentous damage and deltoid ligament tear medially. She did well out of bed, was safe on crutches. On post operative day 2 her dressings were changed, incision was clean, dry, intact. New dressings were applied. She did report some decreased sensation on the dorsum and lateral aspect of her right foot. Due to the MRI findings and her complex soft tissue injury, it was decided that she would be referred to a ankle specialist in [place], [place]. Her appointment with that physician is currently pending. All findings were discussed with the patient, all questions were answered, she understands and agrees with the plan. Discharge instructions were provided. She was discharged to her home in stable condition on September 10, 2016. Total time spent on discharge = This includes examination of the patient, discharge planning, medication reconciliation, and communication with other providers. Discharge Instructions Discharge Instructions Date of Service Sep 09, 2016. Admission Reason for Admission: Open Wound Of Ankle Discharge Discharge Diagnosis / Problem: open right ankle wound Discharge Goals Goal(s): Decrease discomfort, Improve function, Increase independence Activity Recommendations Activity Limitations: per Instructions/Follow-up section Exercise/Sports Limitations: none (no sports) Driving or Machine Use: no driving Weightbearing Status: Left weightbearing (as tolerated), Right non- weightbearing . Instructions / Follow-Up Instructions / Follow-Up DIET: * Resume previous diet. MEDICATIONS: * Please take your prescriptions as instructed at your pre-op appointment and/ or see medication discharge instructions listed above. * If concerns develop, call your physician's office at . * Take stool softener (colace) while on pain medication * Take antibiotic (Keflex) four times/day x 5 days * Take zofran every 6 hours as needed for nausea/vomiting. SPECIAL CARE INSTRUCTIONS: * Ice to right ankle for 20-30 minutes at least 3 times/day * Elevate right ankle above heart to relieve pain/swelling. * Use crutches to assist with ambulation. * DO NOT PUT ANY WEIGHT ON RIGHT LEG * Keep dressing clean, dry, intact. Keep splint on at all times. * Okay to wiggle toes frequently and do full range of motion of right knee and right hip. * Your surgical extremity may be discolored due to prepping agents used on the skin. A bluish-green tint is a normal variant and should not cause alarm. Call your doctor at [phone] if: * Temperature above 101 degrees * Pain not relieved by pain medicine ordered * There is increased drainage or redness from any incision * You have any unanswered questions, problems or concerns. FOLLOW UP VISIT: * If not already scheduled, please call the office at to schedule a follow-up appointment. Please call Dr. Perez or Dr. Amezcua with any questions or concerns. * We will notify you of your appointment with a foot and ankle specialist in [place], [place] Current Hospital Diet Patient's current hospital diet: Regular Diet Discharge Diet Recommended Diet: Regular Diet Procedures Procedures Performed: Irrigate, Explore, Repair of Right Ankle Wound Pending Studies Studies pending at discharge: no Medical Emergencies . Who to Call and When: Medical Emergencies: If at any time you feel your situation is an emergency, please call 911 immediately. . Non-Emergent Contact Non-Emergency issues call your: Surgeon Call Non-Emergent contact if: temperature is above 101, your pain is not controlled, your pain is concerning you, wound has increased drainage, wound has increased redness, you have any medication questions . "Provider Documentation" section prepared by Sena Navarro. . VTE Core Measure Inpt VTE Proph given/why not?: Treatment not indicated [place] Drug Monitoring Program Search Results: patient reviewed within database, no issues identified <Electronically signed by Sena Navarro PA-C> Signed: 09/10/16 1436 Signed: The status of this report is ISigned * If report status is Draft, the document has not been finalized by the responsible provider.
== END 2016-09-10 15:46 | disposition home or self-care (01) | DRG 494 ==
LOC: EDBD 12:58 → C.EDA 12:59 → C.3E 16:42 → ENRESERV 17:00 → OBSVTOIN 09-09 08:53
PROVIDERS: ADMIT Physical Medicine & Rehabilitation Sports Medicine; ATTEND Physical Medicine & Rehabilitation Sports Medicine
PROC: 0HQKXZZ Repair Right Lower Leg Skin, External Approach (ICD-10-PCS; principal; 2016-09-08 14:30)
PROC: 0SJ Lower Joints, Inspection (ICD-10-PCS; principal; 2016-09-08 14:30)
DX: S93.491A Sprain of other ligament of right ankle, initial encounter (principal); S91.001A Unspecified open wound, right ankle, initial encounter; J30.2 Other seasonal allergic rhinitis; Y93.85 Activity, choking game; Y93.39 Activity, other involving climbing, rappelling and jumping off; Y92.328 Other athletic field as the place of occurrence of the external cause